=== PATIENT | female | born 1985 | race African-American/Black ===

== ENCOUNTER 2023-04-08 15:33 | Emergency (ER) | payer BC ==
[~2023-04-08] VITALS: Ht 167.6 cm; Wt 77.3 kg
[~2023-04-08 15:33] MED LIST: BIRTH CONTROL
[2023-04-08 15:41] VITALS: BP 157/92; PULSE 110; RESP 16; TEMP 98.3
[2023-04-08] MEDS ORDERED: IBUP-1492 PO (15:48)
== END 2023-04-08 17:13 | disposition left against medical advice (07) ==
LOC: EMS 15:33
DX: M54.2 Cervicalgia (principal); Z53.21 Procedure and treatment not carried out due to patient leaving prior to being seen by health care provider
CPT/HCPCS: 99281; Z7502